=== PATIENT | male | born 1970 | race Caucasian/White ===

== ENCOUNTER 2018-05-14 12:13 | Day surgery (SDC) | payer BC ==
[2018-05-14 12:42] VITALS: RESP 18; TEMP 98.1
--- NOTE | 2018-05-14 13:55 | US ---
EXAMINATION TYPE: US FNA thyroid DATE OF EXAM: 05/14/2018 COMPARISON: NONE HISTORY: Thyroid nodule. Maximal barrier technique was utilized. After informed consent, skin overlying the lesion was locali zed with ultrasound and the overlying skin prepped and draped. Ultrasound was utilized using sterile technique. Lidocaine was used for local anesthesia. Five passes with a 25-gauge needle were made int o the left-sided nodule and aspirated specimen was submitted to cytology. Following the procedure he mostasis achieved. No immediate complication. The patient discharged in stable condition. IMPRESSION: STATUS POST ULTRASOUND GUIDED FINE NEEDLE ASPIRATION OF THYROID NODULE, PATHOLOGY IS PEND ING. THIS PROCEDURE WAS PERFORMED BY THE UNDERSIGNED.
[2018-05-14 16:18] VITALS: BP 134/74; PULSE 74
== END 2018-05-14 14:10 | disposition home or self-care (01) ==
LOC: RADPROMAIN 12:13
PROVIDERS: ATTEND Otolaryngology
DX: E04.1 Nontoxic single thyroid nodule (principal)
CPT/HCPCS: 10022; 76942; 88173; 88305

== ENCOUNTER → 2018-08-25 | Outpatient (CLI) | payer BC ==
--- NOTE | 2018-08-25 09:26 | US ---
EXAMINATION TYPE: US thyroid st tissue head/neck DATE OF EXAM: 08/25/2018 COMPARISON: US for FNA. 05/14/2018 CLINICAL HISTORY: E04.1 thyroid nodule. Subtotal right thyroidectomy GLAND SIZE: Right Lobe: 2.9 x 1.1 x 1.5 cm Overall Parenchyma: heterogenous Left Lobe: 6.0 x 2.1 x 2.5 cm Overall Parenchyma: heterogeneous Isthmus Thickness: 0.8 cm NODULES RIGHT: # of nodules measured on right: 1 largest of multiple, small nodules 1. 0.2 X 0.2 x 0.2 cm hypoechoic mixed nodule at the mid pole with well-defined margins. This nodu le is wide as is tall and shows no intranodular vascularity. Prior size: no previous US here for Right thyroid LEFT: # of nodules measured on left: 2 1. 3.1 X 1.9 x 2.0 cm, (consolidation with adjacent area) hypoechoic mixed nodule at the mid and lo wer pole with well-defined margins; present with microcalcifications. This nodule is taller than wid e and shows intranodular vascularity. Prior size: 2.0 x 1.7 x 1.8 cm 2. 0.7 X 0.5 x 0.6 cm hypoechoic mixed nodule at the mid lateral pole with well-defined margins. Th is nodule is taller than wide and shows intranodular vascularity. ISTHMUS: # of nodules measured in the isthmus: 0 Bilateral neck scanned: no evidence of lymphadenopathy. IMPRESSION: Nonspecific thyroid nodularity as discussed above dominant left-sided nodule appears to have enlarged in size.
== END | disposition home or self-care (01) ==
LOC: RADUSWWP 07:07
PROVIDERS: ATTEND Otolaryngology
DX: E04.2 Nontoxic multinodular goiter (principal)
CPT/HCPCS: 76536

== ENCOUNTER → 2019-01-12 | Outpatient (CLI) | payer BC, OTHER ==
--- NOTE | 2019-01-12 07:57 | US ---
EXAMINATION TYPE: US thyroid st tissue head/neck DATE OF EXAM: 01/12/2019 COMPARISON: US 2018 CLINICAL HISTORY: E04.1 Thyroid nodule. Enlarged thyroid, history of right thyroidectomy, on thyroid meds GLAND SIZE: Right Lobe: 2.8 x 1.7 x 1.2 cm Overall Parenchyma: heterogenous Left Lobe: 5.8 x 2.2 x 2.0 cm Overall Parenchyma: heterogeneous Isthmus Thickness: 0.5 cm NODULES RIGHT: # of nodules measured on right: 1 1. 0.3 cm hypoechoic nodule at the mid pole with well-defined margins. Prior size: 0.2cm LEFT: # of nodules measured on left: 3 1. 2.1 X 2.0 x 2.0 cm hypoechoic mixed nodule at the lower pole with well-defined margins. This nod ule is wider than tall and shows intranodular vascularity. Prior size: nodule 1 and 3 measured together last exam 2. 0.9 X 0.6 x 0.9 cm hypoechoic mixed nodule at the mid pole with well-defined margins. This nodule is wider than tall and shows . Prior size: 0.7 x 0.5 x 0.6 cm 3. 1.3 X 0.9 x 1.0 cm hypoechoic mixed nodule at the mid pole with well-defined margins. This nodule is wider than tall and shows intranodular vascularity. Prior size: nodule 1 and 3 measured together last exam ISTHMUS: # of nodules measured in the isthmus: 0 Bilateral neck scanned, no evidence of lymphadenopathy. There is persistent overall heterogeneous thyroid with small sized right thyroid lobe and scattered n odules bilaterally. Largest 2.1 cm nodule on current study is felt grossly stable in appearance on im ages saved from prior study where was measured as 1 confluent nodule on prior it is measured as 2 adj acent nodules on today's study. IMPRESSION: Accounting for technical differences overall stable findings. Largest left-sided nodule has been samp led in the past.
== END | disposition home or self-care (01) ==
LOC: RADUSWWP 06:58
PROVIDERS: ATTEND Otolaryngology
DX: E04.1 Nontoxic single thyroid nodule (principal)
CPT/HCPCS: 76536

== ENCOUNTER → 2019-07-24 | Outpatient (CLI) | payer BC, OTHER ==
--- NOTE | 2019-07-24 09:37 | US ---
EXAMINATION TYPE: US thyroid st tissue head/neck DATE OF EXAM: 07/24/2019 COMPARISON: US CLINICAL HISTORY: E04.1 thyroid nodule. F/U previous GLAND SIZE: Right Lobe: 3.7 x 1.5 x 1.4 cm Overall Parenchyma: heterogenous Left Lobe: 5.2 x 2.3 x 2.0 cm Overall Parenchyma: heterogeneous Isthmus Thickness: 0.4 cm NODULES LEFT: # of nodules measured on left: 2 1. 2.4 X 2.1 x 1.9 cm hypoechoic solid nodule at the lower pole with well-defined margins; This no dule is wider than tall and shows intranodular vascularity. Prior size: 2.1 x 2.0 x 2.0 cm 2. 1.3 X 1.2 x 1.4 cm hypoechoic solid nodule at the mid pole with well-defined margins; This nodul e is wider than tall and shows intranodular vascularity. Prior size: 1.3 x 0.9 x 1.0 cm Bilateral neck scanned, no evidence of lymphadenopathy. Slight increase in size of nodules on left. IMPRESSION: Nonspecific thyroid nodularity with slight increase in size on the left.
== END | disposition home or self-care (01) ==
LOC: RADUSWWP 06:54
PROVIDERS: ATTEND Otolaryngology
DX: E04.1 Nontoxic single thyroid nodule (principal)
CPT/HCPCS: 76536

== ENCOUNTER → 2020-01-13 | Outpatient (CLI) | payer BC, OTHER ==
--- NOTE | 2020-01-13 08:58 | US ---
EXAMINATION TYPE: US thyroid st tissue head/neck DATE OF EXAM: 01/13/2020 COMPARISON: 07/24/2019 CLINICAL HISTORY: E04.1 THYROID NODULE. Follow up thyroid nodules. On meds. GLAND SIZE: Right Lobe: 3.5 x 1.1 x 1.2 cm Overall Parenchyma: heterogenous Left Lobe: 4.8 x 2.1 x 2.4 cm Overall Parenchyma: heterogeneous Isthmus Thickness: 0.4 cm NODULES RIGHT: # of nodules measured on right: 0 LEFT: # of nodules measured on left: 2 1. 2.1 X 2.1 x 2.0 cm hypoechoic nodule at the lower pole with well-defined margins. This nodule i s wider than tall and shows intranodular vascularity. Prior size: 2.4 x 2.1 x 1.9 cm 2. 1.3 X 0.8 x 0.8 cm hypoechoic nodule at the mid pole with well-defined margins. This nodule is w mónica as tall and shows intranodular vascularity. Prior size: 1.3 x 1.2 x 1.4 cm ISTHMUS: # of nodules measured in the isthmus: 0 Bilateral neck scanned, no evidence of lymphadenopathy. IMPRESSION: No significant interval growth of the to left thyroid nodules in comparison to the prior exam. Continued surveillance recommended.
== END | disposition home or self-care (01) ==
LOC: RADUSWWP 08:08
PROVIDERS: ATTEND Otolaryngology
DX: E04.1 Nontoxic single thyroid nodule (principal)
CPT/HCPCS: 76536

== ENCOUNTER → 2020-08-10 | Outpatient (CLI) | payer BC ==
--- NOTE | 2020-08-10 15:08 | US ---
EXAMINATION TYPE: US thyroid st tissue head/neck DATE OF EXAM: 08/10/2020 COMPARISON: US CLINICAL HISTORY: E04.1 THYROID NODULE. F/U GLAND SIZE: Right Lobe: 2.9 X 1.2 X 1.1 cm Overall Parenchyma: heterogenous Left Lobe: 5.1 X 2.5 X 1.9 cm Overall Parenchyma: heterogeneous Isthmus Thickness: 0.5 cm NODULES LEFT: # of nodules measured on left: 2 1. 2.3 X 2.2 x 2.0 cm hypoechoic solid nodule at the lower pole with well-defined margins;This nodu le is wider than tall and shows intranodular vascularity. Prior size: 2.1 x 2.1 x 2.0 cm 2. 1.4 X 1.0 x 1.0 cm hypoechoic solid nodule at the mid pole with well-defined margins;This nodule is wider than tall and shows intranodular vascularity. Prior size: 1.3 x 0.8 x 0.8 cm Bilateral neck scanned, no evidence of lymphadenopathy. Essentially stable nodules left lobe. IMPRESSION: Nonspecific thyroid nodularity.
== END | disposition home or self-care (01) ==
LOC: RADUSWWP 14:35
PROVIDERS: ATTEND Otolaryngology
DX: E04.1 Nontoxic single thyroid nodule (principal)
CPT/HCPCS: 76536

== ENCOUNTER → 2021-05-24 | Outpatient (CLI) | payer BC ==
--- NOTE | 2021-05-24 09:04 | US ---
EXAMINATION TYPE: US thyroid st tissue head/neck DATE OF EXAM: 05/24/2021 COMPARISON: Multiple US's. CLINICAL HISTORY: E04.1 Thyroid Nodule. GLAND SIZE: Right Lobe: 3.8 x 1.9 x 1.2 cm Overall Parenchyma: heterogenous Left Lobe: 5.6 x 2.9 x 2.4 cm Overall Parenchyma: heterogeneous Isthmus Thickness: 0.5 cm NODULES RIGHT: # of nodules measured on right: 0 LEFT: # of nodules measured on left: 2 1. 2.2 X 2.2 x 2.0 cm, lower mid, solid or almost completely solid, hypoechoic nodule, which is wid er than tall, with ill-defined margins, with echogenic foci. Prior size: 2.3 x 2.1 x 1.9 cm 2. 1.8 X 0.9 x 1.5 cm, mid mid, solid or almost completely solid, hypoechoic nodule, which is wide r than tall, with ill-defined margins, without echogenic foci. Prior size: 1.4 x 1.0 x 1.0 cm ISTHMUS: # of nodules measured in the isthmus: 0 Bilateral neck scanned, no evidence of lymphadenopathy. IMPRESSION: Left thyroid nodules appear similar to the prior exam. 2017 ACR TI-RADS LEVEL: TR-RADS 4 - Moderately Suspicious: Follow if > 1 cm, FNA if > 1.5 cm *Highest TI-RADS level nodule reported
== END | disposition home or self-care (01) ==
LOC: RADUSWWP 07:37
PROVIDERS: ATTEND Otolaryngology
DX: E04.2 Nontoxic multinodular goiter (principal)
CPT/HCPCS: 76536

== ENCOUNTER → 2022-07-16 | Outpatient (CLI) | payer BC ==
--- NOTE | 2022-07-16 10:01 | US ---
EXAMINATION TYPE: US thyroid st tissue head/neck DATE OF EXAM: 07/16/2022 . COMPARISON: Thyroid ultrasound 05/24/2021 CLINICAL HISTORY: R04.1 THYROID NODULE X 2. F/u exam, GLAND SIZE: Right Lobe: 3.6 x 1.3 x 1.8 cm Overall Parenchyma: heterogenous Left Lobe: 5.8 x 2.4 x 3.0 cm Overall Parenchyma: heterogeneous Isthmus Thickness: 0.7 cm NODULES RIGHT: # of nodules measured on right: 0 LEFT: # of nodules measured on left: 2 1. 2.3 X 2.3 x 2.6 cm, mid-inferior, solid or almost completely solid, isoechoic nodule, which is w ider than tall, with ill-defined margins, without echogenic foci. Prior size: 2.2 x 2.2 x 2.0 cm 2. 1.6 X 1.4 x 1.1 cm, upper, solid or almost completely solid, hypoechoic nodule, which is wider than tall, with ill-defined margins, without echogenic foci. Prior size: 1.8 x 0.9 x 1.5 cm ISTHMUS: # of nodules measured in the isthmus: 0 Bilateral neck scanned, no evidence of lymphadenopathy. IMPRESSION: 1. Left thyroid lobe nodules appear similar to prior examination. No new suspicious nodules. 2. Residual right-sided thyroid tissue redemonstrated. 2017 ACR TI-RADS LEVEL: TR-RADS 4 - Moderately Suspicious: Follow if > 1 cm, FNA if > 1.5 cm *Highest TI-RADS level nodule reported
== END | disposition home or self-care (01) ==
LOC: RADUSWWP 09:21
PROVIDERS: ATTEND Otolaryngology
DX: E04.2 Nontoxic multinodular goiter (principal)
CPT/HCPCS: 76536